=== PATIENT | female | born 1950 | race Caucasian/White ===

== ENCOUNTER 2016-11-10 17:49 | Emergency (ER) | payer OTHER ==
--- NOTE | ~2016-11-10 | CR63 ---
[facility] A Service of [facility] & [facility] RADIOLOGY TEXT RESULTS PATIENT: SHARITA GRIFFITH LOCATION: CFTX : 54 UNIT #: [id number] AGE: [address]: Pete Escalera SEX: F ORDER DR: [id number] [facility] [address] [place], [place] [address] [id number] E MR#: [id number] Acc #: [id number] NAME: SHARITA GRIFFITH. : 1950 SEX: F STUDY DATE/TIME: 11/10/2016 17:31 UNIT: [facility] ROOM: STUDY DESCRIPTION: CR Chest 2 View Attending Physician: Pete Escalera Referring Physician: Jered Nguyen M.D. Ordering Physician: Ed Doctor [id number] [facility] Primary Care Physician: Jered Nguyen M.D. MEDICAL IMAGING REPORT This report is preliminary unless electronic signature is present EXAM PA and lateral chest, 11/10/2016 at 17:31 HISTORY 66-year-old female left chest pain, shortness of breath and cough since Thursday. Fell Thursday. History of breast cancer. COMPARISON AP portable chest, 10/05/2015 FINDINGS There is thoracolumbar junction dextroscoliosis. No acute airspace disease. Stable mild asymmetric elevation of right hemidiaphragm. No pleural effusion or pneumothorax is identified. IMPRESSION 1. No acute chest findings. 2. Thoracolumbar junction dextroscoliosis. Dictated by... Monique Irizarry M.D. THIS IS AN ELECTRONICALLY VERIFIED REPORT Monique Irizarry M.D. at 11/11/2016 2:08 PM Artie TD: 11/11/2016 08:12 JOB #: [id number] MEDICAL IMAGING REPORT COPY
[~2016-11-10 17:49] MED LIST: ACETAMINOPHEN PO; ADVAIR 100-501 EAC1 IH; ALBUTEROL MININEB NEB; ALBUTEROL17 G2; ALBUTEROL17 GM INH; ALBUTEROL20 ml INH; ALEVE; AMOXICILLIN500 M1 PO; AZITHROMYCIN250 MG PO; BACTRIM DS TABL1 TA1 PO; BACTRIM DS TABL1 TA2 PO; CARAFATE PO; COLACE PO; COMBIVENT U/D3 M2 INH; DIAZEPAM PO; DOCUSATE SODIU1 EACH PO; FLEXERIL PO; FLEXERIL10 MG PO; GABAPENTIN300 M2 PO; GABAPENTIN800 MG PO; IBUPROFEN PO; IBUPROFEN800 MG PO; KETOPROFEN PO; LEVAQUIN PO; LEXAPRO PO; LOPRESSOR PO; LORTAB 10-3251 EACH PO; LORTAB 2.5/5001 TAB PO; LORTAB 5/500 TA1 TA1 PO; LORTAB 7.5-3251 EACH PO; LORTAB 7.5-5001 TAB PO; LOVENOX40 MG/0.4 INJ; MEDROL PO; MEDROL4 MG/DOSE- PO; MILK OF MAGNESIA PO; MOBIC PO; MOBIC15 MG PO; MSIR15 M1 PO; NAPROSYN125 MG/5 M PO; NAPROSYN375 MG PO; NAPROSYN500 MG PO; NEURONTIN800 MG PO; NICOTINE T1 PATCH .2 TOP; NICOTINE TRANSD14 MG EXT; NORCO 10-325 TA1 TAB PO; NORCO 10/3251 TAB PO; NORCO 5/325 TAB1 TAB PO; NORCO 7.5-3251 EACH PO; NORCO 7.5/325 T1 TAB PO; PERCODAN TABLET1 TAB PO; PHENERGAN PO; PHENERGAN25 MG PO; PREDNISONE PO; PREDNISONE10 MG/DOSE PO; PRILOSEC PO; PRILOSEC20 MG PO; PRILOSEC40 MG PO; PROAIR HFA8.5 GM IH; PROTONIX PO; REGLAN PO; SYMBICORT INH; TAMIFLU75 M1 PO; TIGECYCLINE IV; TRAMADOL HCL50 M1 PO; TRAMADOL HCL50 M2 PO; TYLENOL PM; TYLENOL325 M1 PO; ULTRAM PO; VALIUM10 MG PO; VICODIN 5/1 TAB 5/50 PO; VICODIN 5/500 T1 TAB PO; VICODIN PO; VIT D PO; VIT D2 PO; VOLTAREN75 MG PO; ZANAFLEX4 M1 PO; ZITHROMAX PO; ZITHROMAX1 G/PKT PO; ZOFRAN ODT4 MG PO; ZOFRAN PO; ZYRTEC10 M2 PO; [UNRECOGNIZED DRUG - REMARK]; [UNRECOGNIZED DRUG - REMARK]
== END 2016-11-10 18:13 | disposition left against medical advice (07) ==
LOC: CFTX 17:49
DX: S20.212A Contusion of left front wall of thorax, initial encounter (principal); K21.9 Gastro-esophageal reflux disease without esophagitis; F17.210 Nicotine dependence, cigarettes, uncomplicated; W18.09XA Striking against other object with subsequent fall, initial encounter
CPT/HCPCS: 71020; 99283

== ENCOUNTER 2017-02-26 15:53 | Emergency (ER) | payer OTHER ==
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
[2017-02-26] MEDS ORDERED: LEXAPRO PO (16:42)
[2017-02-26] MEDS ORDERED: GABAPENTIN800 MG PO (16:42)
[2017-02-26] MEDS ORDERED: HYDROCHLOROTHIA25 MG PO (16:43)
[2017-02-26] MEDS ORDERED: HYDROCODON-ACE1 EAC5 PO (16:43)
[2017-02-26] MEDS ORDERED: VALIUM10 MG PO (16:44)
[2017-02-26] MEDS ORDERED: ARIMIDEX1 MG PO (16:44)
== END 2017-02-26 17:50 | disposition home or self-care (01) ==
LOC: CED 15:53 → CFTX 16:47 → CED 16:47
DX: M79.604 Pain in right leg (principal); M79.605 Pain in left leg; G89.29 Other chronic pain; R47.89 Other speech disturbances; J44.9 Chronic obstructive pulmonary disease, unspecified; K21.9 Gastro-esophageal reflux disease without esophagitis; Z90.710 Acquired absence of both cervix and uterus; F17.200 Nicotine dependence, unspecified, uncomplicated; Z79.899 Other long term (current) drug therapy
CPT/HCPCS: 99284

== ENCOUNTER 2017-04-19 14:47 | Emergency (ER) | payer OTHER ==
[~2017-04-19] VITALS: Ht 160 cm; Wt 44.9 kg
--- NOTE | ~2017-04-19 | EKG ---
PATIENT: SHARITA GRIFFITH UNIT #: [id number] Ventricular Rate: 64 BPM Atrial Rate: 64 BPM P-R Interval: 130 ms QRS Duration: 86 ms Q-T Interval: 426 ms QTC Calculation(Bezet): 439 ms P [place]: 70 degrees Calculated R [place]: 76 degrees Calculated T [place]: 64 degrees Diagnosis Line: Normal sinus rhythm Diagnosis Line: Possible Left atrial enlargement Diagnosis Line: Nonspecific ST abnormality Diagnosis Line: Abnormal ECG Diagnosis Line: When compared with ECG of 04-OCT-2015 06:19, Diagnosis Line: T wave inversion no longer evident in Inferior Diagnosis Line: leads Diagnosis Line: T wave inversion no longer evident in Lateral Diagnosis Line: leads Diagnosis Line: Confirmed by DAVID WANG MD ([id number]) on Diagnosis Line: 04/20/2017 10:01:08 PM INTERPRETING MD: HEYDI
--- NOTE | ~2017-04-19 | CR281 ---
[facility]. [facility] A Service of [facility] & [facility] RADIOLOGY TEXT RESULTS PATIENT: SHARITA GRIFFITH LOCATION: SED : 54 UNIT #: [id number] AGE: [address]: CAL LONDON SEX: F ORDER DR: [id number] [place] [id number] E MR#: [id number] Acc #: [id number] NAME: SHARITA GRIFFITH. : 1950 SEX: F STUDY DATE/TIME: 04/19/2017 16:06 UNIT: SED ROOM: STUDY DESCRIPTION: CR Wrist Min 3 View Lt Attending Physician: Cal London A.P.R.N. Ordering Physician: Heber London Primary Care Physician: Jered Nguyen M.D. MEDICAL IMAGING REPORT This report is preliminary unless electronic signature is present. EXAM Left wrist INDICATIONS Trauma for 2 days. Fall. FINDINGS Three views of the left wrist without comparison. There is no acute fracture or dislocation. Alignment is anatomic. No foreign body. There is some dorsal soft tissue swelling. IMPRESSION Soft tissue swelling. No underlying fracture. Dictated by... Merlin Jiménez M.D. THIS IS AN ELECTRONICALLY VERIFIED REPORT Merlin Jiménez M.D. at 04/21/2017 10:29 AM JOHANNA/storm TD: 04/20/2017 07:54 JOB #: [id number] MEDICAL IMAGING REPORT Page 1 of 1
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
[~2017-04-19 14:47] MED LIST changes: +ARIMIDEX1 MG PO; +HYDROCHLOROTHIA25 MG PO; +HYDROCODON-ACE1 EAC5 PO
[2017-04-19] MEDS ORDERED: CANCER MEDICATION (14:51)
[2017-04-19 15:53] LABS: BASOPHIL# 0.1 X10e3 (0-0.3); BASOPHIL% 0.9 % (0-2.5); EOSINOPHIL# 0.1 X10e3 (0-0.7); HEMATOCRIT 38.3 % (35.0-45.0); HEMOGLOBIN 12.9 gm/dL (12.0-16.0); LYMPHOCYTE# 2.4 X10e3 (1.0-3.5); LYMPHOCYTE% 22.5 % (17.0-45.0); MEAN CELL VOLUME 96.1 FL (83-96); MEAN CORPUSCULAR HEMOGLOBIN 32.3 PG (28-34); MEAN CORPUSCULAR HGB CONC 33.6 g/dL (30-36); MONOCYTE# 0.8 X10e3 (0-1.0); MONOCYTE% 7.9 % (3.0-12.0); NEUTROPHIL# 7.2 X10e3 (1.5-7.1); NEUTROPHIL% 67.7 % (40-75); PLATELET COUNT 270 X10e3 (140-420); RED BLOOD COUNT 3.99 X10e (3.90-5.30); WHITE BLOOD COUNT 10.6 X10e3 (4.0-10.5)
[2017-04-19 15:54] LABS: DIFF IND NO
[2017-04-19 16:07] LABS: POC - CKMB 3.2 ng/mL (0.0-7.9); POC - TROPONIN <0.05 ng/mL (<=0.05)
[2017-04-19 16:09] LABS: BUN/CREATININE RATIO 21.66; CALCIUM SERUM 8.7 mg/dL (8.4-10.2); CREATININE SERUM 0.6 mg/dL (0.6-1.4); GLOM FILT RATE Estimated 96.3 mL/min (>60); POTASSIUM 4.6 mmol/L (3.5-5.1)
== END 2017-04-19 17:00 | disposition home or self-care (01) ==
LOC: SED 14:47
PROVIDERS: Nurse Practitioner
DX: S63.502A Unspecified sprain of left wrist, initial encounter (principal); S63.92XA Sprain of unspecified part of left wrist and hand, initial encounter; S20.212A Contusion of left front wall of thorax, initial encounter; L03.114 Cellulitis of left upper limb; J44.9 Chronic obstructive pulmonary disease, unspecified; F17.200 Nicotine dependence, unspecified, uncomplicated; W18.09XA Striking against other object with subsequent fall, initial encounter
CPT/HCPCS: 29125; 29260; 71100; 73110; 73130; 80048; 82553; 84484; 85025; 93005; 96372; 99284; J2270; J2405